=== PATIENT | female | born 1935 | race Caucasian/White ===

== ENCOUNTER 2021-09-18 20:17 | Inpatient (IN) | payer OTHER ==
[2021-09-18] MEDS ORDERED: ACETAMINOPHEN 500 MG TABLET (FP) PO ONE (21:36)
[2021-09-18] MEDS ORDERED: DIPHTH,PERTUSS(ACELL),TET 0.5 ML DISP.SYRIN IM ONE (21:39)
[2021-09-18 22:14] LABS: BASO % 0.7 % (0-2.0); EOS % 2.6 % (0-4.5); HEMATOCRIT 31.1 % (32.4-45.2); HEMOGLOBIN 10.8 GM/dL (10.7-15.3); LYMPH % 13.6 % (8-40); MCH 29.4 pg (25.7-33.7); MCHC 34.6 g/dl (32.0-36.0); MONO % 7.5 % (3.8-10.2); NEUT % 75.6 % (42.8-82.8); PLATELET COUNT 207 10^3/uL (134-434); RBC 3.66 M/mm3 (3.60-5.2); RDW 16.1 % (11.6-15.6)
[2021-09-18 22:20] LABS: INR 1.03 (0.83-1.09); PROTHROMBIN TIME (PATIENT) 11.8 SEC (9.7-13.0)
[2021-09-18 22:23] LABS: ACTIVATED PTT 30.5 SECONDS (25.2-36.5)
[2021-09-18 22:35] LABS: CALCIUM 8.6 mg/dL (8.5-10.1)
[2021-09-18 22:36] LABS: ALBUMIN 2.6 g/dl (3.4-5.0); BLOOD UREA NITROGEN 14.4 mg/dL (7-18); MAGNESIUM 2.1 mg/dL (1.8-2.4)
[2021-09-18 22:38] LABS: PHOSPHOROUS 3.7 mg/dL (2.5-4.9)
[2021-09-18 22:39] LABS: CREATININE 0.6 mg/dL (0.55-1.3)
[2021-09-18] MEDS ORDERED: ACETAMINOPHEN 325 MG TABLET (FP) ONE (22:39)
[2021-09-18 22:40] LABS: BILIRUBIN,TOTAL 0.9 mg/dL (0.2-1); TOT PROT 6.6 g/dl (6.4-8.2)
[2021-09-18 23:26] LABS: PH,URINE 7.5 (5.0-8.0); URINE APPEARANCE CLEAR; URINE BILIRUBIN NEGATIVE (NEGATIVE); URINE COLOR YELLOW; URINE GLUCOSE (UA) NEGATIVE (NEGATIVE); URINE KETONE NEGATIVE (NEGATIVE); URINE LEUK ESTERASE NEGATIVE (NEGATIVE); URINE NITRITE NEGATIVE (NEGATIVE); URINE PROTEIN NEGATIVE (NEGATIVE); URINE UROBILINOGEN 0.2 mg/dL (0.2-1.0)
[2021-09-19 00:28] LABS: BASO % 1.1 % (0-2.0); EOS % 2.9 % (0-4.5); HEMATOCRIT 30.7 % (32.4-45.2); HEMOGLOBIN 10.4 GM/dL (10.7-15.3); LYMPH % 14.9 % (8-40); MCH 28.9 pg (25.7-33.7); MEAN CELL VOLUME 85.2 fl (80-96); MEAN PLT VOLUME 7.7 fl (7.5-11.1); MONO % 7.5 % (3.8-10.2); NEUT % 73.6 % (42.8-82.8); PLATELET COUNT 202 10^3/uL (134-434); RDW 15.9 % (11.6-15.6); WHITE BLOOD COUNT 7.9 K/mm3 (4.0-10.0)
[2021-09-19 05:26] VITALS: BMI 26.6
[2021-09-19] MEDS: ACETAMINOPHEN 1000 MG/100 ML BAG IVPB PRN ×2 (06:30→18:45)
[2021-09-19 08:31] LABS: BASO % 0.8 % (0-2.0); EOS % 2.8 % (0-4.5); HEMATOCRIT 30.9 % (32.4-45.2); HEMOGLOBIN 10.4 GM/dL (10.7-15.3); LYMPH % 10.6 % (8-40); MCH 28.8 pg (25.7-33.7); MCHC 33.7 g/dl (32.0-36.0); MEAN CELL VOLUME 85.5 fl (80-96); MEAN PLT VOLUME 8.3 fl (7.5-11.1); MONO % 6.8 % (3.8-10.2); PLATELET COUNT 208 10^3/uL (134-434); RBC 3.62 M/mm3 (3.60-5.2); RDW 15.7 % (11.6-15.6); WHITE BLOOD COUNT 8.7 K/mm3 (4.0-10.0)
[2021-09-19 09:04] LABS: BLOOD UREA NITROGEN 12.5 mg/dL (7-18); CALCIUM 8.5 mg/dL (8.5-10.1)
[2021-09-19 09:05] LABS: ALBUMIN 2.5 g/dl (3.4-5.0)
[2021-09-19 09:09] LABS: BILIRUBIN,TOTAL 0.8 mg/dL (0.2-1); TOT PROT 6.4 g/dl (6.4-8.2)
[2021-09-19 09:11] LABS: CREATININE 0.5 mg/dL (0.55-1.3)
[2021-09-19] MEDS: HYDROCHLOROTHIAZIDE 25 MG TABLET (FP) PO SCH (09:24)
[2021-09-19] MEDS ORDERED: predniSONE 2.5 MG TABLET PO SCH (12:00)
[2021-09-19] MEDS: predniSONE 5 MG TABLET (UD) PO SCH (12:05)
[2021-09-19] MEDS: metoPROLOL SUCCINATE 25 MG TAB.SR.24H (FP) PO SCH (21:53)
[2021-09-19] MEDS ORDERED: ANAGRELIDE HCL 0.5 MG CAPSULE PO SCH (22:00)
[2021-09-19] MEDS: ANAGRELIDE HCL 0.5 MG PO SCH (22:01)
[2021-09-19] MEDS: [UNRECOGNIZED DRUG - OTHER] PO SCH (22:01)
[2021-09-20] MEDS ORDERED: ACETAMINOPHEN 325 MG TABLET (FP) PO PRN (08:46)
[2021-09-20] MEDS: [UNRECOGNIZED DRUG - OTHER] PO SCH ×2 (09:37→21:59)
[2021-09-20] MEDS: ANAGRELIDE HCL 0.5 MG PO SCH ×2 (09:37→21:59)
[2021-09-20] MEDS: HYDROCHLOROTHIAZIDE 25 MG TABLET (FP) PO SCH (09:38)
[2021-09-20] MEDS: predniSONE 5 MG TABLET (UD) PO SCH (09:38)
[2021-09-20] MEDS: traMADol HCL 50 MG TABLET PO PRN (10:12)
[2021-09-20] MEDS: metoPROLOL SUCCINATE 25 MG TAB.SR.24H (FP) PO SCH (21:58)
[2021-09-21] MEDS: traMADol HCL 50 MG TABLET PO PRN (05:48)
[2021-09-21 09:08] LABS: BASO % 0.5 % (0-2.0); EOS % 5.2 % (0-4.5); HEMATOCRIT 31.3 % (32.4-45.2); HEMOGLOBIN 10.7 GM/dL (10.7-15.3); LYMPH % 13.9 % (8-40); MCH 29.4 pg (25.7-33.7); MCHC 34.2 g/dl (32.0-36.0); MEAN PLT VOLUME 8.2 fl (7.5-11.1); MONO % 7.6 % (3.8-10.2); NEUT % 72.8 % (42.8-82.8); PLATELET COUNT 220 10^3/uL (134-434); RBC 3.64 M/mm3 (3.60-5.2); RDW 16.5 % (11.6-15.6); WHITE BLOOD COUNT 8.6 K/mm3 (4.0-10.0)
[2021-09-21 09:22] LABS: CALCIUM 8.5 mg/dL (8.5-10.1)
[2021-09-21 09:23] LABS: ALBUMIN 2.4 g/dl (3.4-5.0); BLOOD UREA NITROGEN 19.2 mg/dL (7-18)
[2021-09-21 09:26] LABS: CREATININE 0.7 mg/dL (0.55-1.3)
[2021-09-21 09:27] LABS: BILIRUBIN,TOTAL 0.7 mg/dL (0.2-1); TOT PROT 6.4 g/dl (6.4-8.2)
[2021-09-21] MEDS: HYDROCHLOROTHIAZIDE 25 MG TABLET (FP) PO SCH (09:46)
[2021-09-21] MEDS: predniSONE 5 MG TABLET (UD) PO SCH (09:46)
[2021-09-21] MEDS: [UNRECOGNIZED DRUG - OTHER] PO SCH ×2 (09:48→22:18)
[2021-09-21] MEDS: ANAGRELIDE HCL 0.5 MG PO SCH ×2 (09:48→22:18)
[2021-09-21] MEDS ORDERED: traMADol HCL 50 MG TABLET PO PRN (12:34)
[2021-09-21] MEDS: LIDOCAINE 5% TOPICAL PATCH TP SCH (13:27)
[2021-09-21] MEDS ORDERED: LIDOCAINE PATCH REMOVAL MC SCH (22:00)
[2021-09-21] MEDS: metoPROLOL SUCCINATE 25 MG TAB.SR.24H (FP) PO SCH (22:17)
[2021-09-22 08:04] LABS: LDH 174 U/L (84-246)
[2021-09-22] MEDS: HYDROCHLOROTHIAZIDE 25 MG TABLET (FP) PO SCH (10:46)
[2021-09-22] MEDS: predniSONE 5 MG TABLET (UD) PO SCH (10:46)
[2021-09-22] MEDS: LIDOCAINE 5% TOPICAL PATCH TP SCH (10:46)
[2021-09-22] MEDS: ANAGRELIDE HCL 0.5 MG PO SCH (10:53)
[2021-09-22] MEDS: [UNRECOGNIZED DRUG - OTHER] PO SCH (10:53)
[2021-09-22] MEDS ORDERED: traMADol HCL 50 MG TABLET PO PRN (12:18)
[2021-09-22 13:33] VITALS: BP 135/66; PULSE 115; TEMP 97.8
== END 2021-09-22 19:00 | DRG 536 ==
LOC: JER 20:17 → JERBED 23:55 → J7W 09-19 03:30
PROVIDERS: ADMIT Internal Medicine; ATTEND Family Medicine
DX: S32.512A Fracture of superior rim of left pubis, initial encounter for closed fracture (principal); S32.592A Other specified fracture of left pubis, initial encounter for closed fracture; L12.0 Bullous pemphigoid; M35.3 Polymyalgia rheumatica; I10 Essential (primary) hypertension; N32.89 Other specified disorders of bladder; M41.9 Scoliosis, unspecified; R29.890 Loss of height; D69.6 Thrombocytopenia, unspecified; M41.84 Other forms of scoliosis, thoracic region; R09.02 Hypoxemia; R26.89 Other abnormalities of gait and mobility; D64.9 Anemia, unspecified; S30.0XXA Contusion of lower back and pelvis, initial encounter; M47.892 Other spondylosis, cervical region; M19.012 Primary osteoarthritis, left shoulder; M19.011 Primary osteoarthritis, right shoulder; M17.0 Bilateral primary osteoarthritis of knee; E66.3 Overweight; Z68.26 Body mass index [BMI] 26.0-26.9, adult; M71.21 Synovial cyst of popliteal space [Baker], right knee; Y92.098 Other place in other non-institutional residence as the place of occurrence of the external cause; W18.39XA Other fall on same level, initial encounter
CPT/HCPCS: 36415; 70450-TC; 71045-TC-FY; 71275-TC; 72125-TC; 72192-TC; 80053; 81003; 82550; 83615; 83735; 84100; 84484; 85025; 85379; 85610; 85730; 86900; 87086; 87804; 90715; 93005; 93010; 93970-TC; 97116-GP; 99285-25; C9803-CS; Q9967; U0003; U0005